=== PATIENT | male | born 1935 | race Caucasian/White ===

== ENCOUNTER 2018-08-20 10:43 | Inpatient (IN) ==
[2018-08-20] MEDS ORDERED: SODIUM CHLORIDE 0.9% 500 ML IV STA (11:11)
[2018-08-20 11:32] LABS: Basophils % 0.1 % (0.0-0.8); Eosinophils % 0.1 % (0.00-10.9); Hemoglobin 9.6 GM/DL (14.0-18.0); Immature Granulocytes % 0.5 %; Immature Granulocytes Absolute 0.09 #; Lymphocytes # 1.7 10*3/uL (1.4-4.0); Lymphocytes % 9.7 % (21.2-54.2); Mean Corpuscular Hemoglobin 29 PG (27-34); Mean Corpuscular Volume 97.9 FL (87-102); Mean Platelet Volume 10.8 FL (9.6-12.0); Monocytes # 0.6 10*3/uL (0.11-0.8); Monocytes % 3.5 % (1.7-12.7); Neutrophils # 15.1 10*3/uL (1.4-7.4); Neutrophils % 86.1 % (38.7-73.9); Platelet Count 268 T/CUMM (130-400); Red Blood Count 3.27 MC/CUMM (3.8-5.5); Red Cell Distribution Width 15.2 % (9.3-17.3); White Blood Count 17.6 T/CUMM (4-12)
[2018-08-20 11:40] LABS: INR 1.1; PT Patient Result 11.4 SECS; Partial Thromboplastin Time 27.9 SECS (0-40)
[2018-08-20 12:02] LABS: Alanine Aminotransferase 26 U/L (16-61); Albumin 2.6 G/DL (3.4-5.0); Alkaline Phosphatase 89 U/L (45-117); Aspartate Amino Transferase 16 U/L (0-37); Blood Urea Nitrogen 83 MG/DL (7-18); Calcium 9.8 MG/DL (8.5-10.1); Glucose 125 MG/DL (74-106); Osmolality,Calculated 345.3 MOS/KG (273-304); Potassium 4.3 MMOL/L (3.5-5.1); Thyroid Stimulating Hormone 0.269 uIU/ml (0.358-3.74); Total Protein 7.8 G/DL (6.4-8.3); Troponin I < 0.015 NG/ML (0.00-0.045)
[2018-08-20 12:03] LABS: Sodium 162 MMOL/L (136-145)
[2018-08-20 12:18] LABS: Amorphous Crystals,Urine Occasional /HPF (Few); Apearance,Urine CLOUDY (Clear); Bilirubin,Urine Negative (Negative); Blood, Urine Large mg/dL (Negative); Glucose,Urine (UA) Negative (Negative); Ketones,Urine Negative (Negative); Mucus,Urine Occasional /LPF (Occasional); Nitrite,Urine Negative (Negative); Protein,Urine 30 MG/DL; RBC,Urine 245 /HPF (0-4); Urine Color Amber (Yellow); Urine Specific Gravity 1.017 (1.001-1.035); Urine Urobilinogen < 2.0 EU/DL (0.2-1.0); WBC,Urine <1 /HPF (0-6)
[2018-08-20 12:20] LABS: Barbiturates Screen,Urine Negative (Negative); Benzodiazepines Screen,Urine Negative (Negative); Cannabinoid Screen,Urine Negative (Negative); Opiate Screen,Urine Negative (Negative); Phencyclidine Screen,Urine Negative (Negative)
[2018-08-20] MEDS ORDERED: DEXTROSE 5% 1,000 ML IV STA (12:27)
[2018-08-20] MEDS ORDERED: DEXTROSE 5% 1,000 ML IV SCH (12:30)
[2018-08-20] MEDS ORDERED: PROMETHAZINE 25 MG/1 ML VIAL IM PRN (12:44)
[2018-08-20] MEDS ORDERED: ONDANSETRON 4 MG/2 ML VIAL IV PRN (12:44)
[2018-08-20] MEDS ORDERED: ACETAMINOPHEN 325 MG SUPP RECTAL PRN (12:45)
[2018-08-20] MEDS ORDERED: GLUCAGON 1 MG VIAL IM PRN (12:54)
[2018-08-20] MEDS ORDERED: POTASSIUM CHLORIDE RIDER 10 MEQ in PREMIX 1 EACH IV PRN (12:54)
[2018-08-20] MEDS ORDERED: MAGNESIUM SULF RIDER 4 GM in PREMIX 1 EACH IV PRN (12:54)
[2018-08-20] MEDS ORDERED: MAGNESIUM SULF RIDER 2 GM in PREMIX 1 EACH IV PRN (12:54)
[2018-08-20] MEDS ORDERED: DEXTROSE 50% 25 GM/50 ML VIAL IV PRN (12:54)
[2018-08-20 15:51] LABS: Calcium 9.4 MG/DL (8.5-10.1); Osmolality,Calculated 347.3 MOS/KG (273-304); Potassium 4.3 MMOL/L (3.5-5.1)
[2018-08-20] MEDS: cefTRIAXone 1,000 MG in SYRINGE 1 EACH IV SCH (16:16)
[2018-08-20] MEDS: DEXTROSE 5% 1,000 ML IV SCH (16:16)
[2018-08-20] MEDS: HEPARIN 5,000 UNIT/1 ML VIAL SUBCUT SCH ×2 (16:16→22:05)
[2018-08-20 19:57] LABS: Calcium 9.3 MG/DL (8.5-10.1); Osmolality,Calculated 332.3 MOS/KG (273-304); Potassium 3.9 MMOL/L (3.5-5.1)
[2018-08-21 02:39] LABS: Basophils % 0.1 % (0.0-0.8); Eosinophils # 0.2 10*3/uL (0.0-0.87); Eosinophils % 1.1 % (0.00-10.9); Hematocrit 28.3 VOL% (42.0-52.0); Hemoglobin 8.5 GM/DL (14.0-18.0); Immature Granulocytes % 0.8 %; Immature Granulocytes Absolute 0.11 #; Lymphocytes # 1.6 10*3/uL (1.4-4.0); Lymphocytes % 11.5 % (21.2-54.2); Mean Corpuscular Hemoglobin 29 PG (27-34); Mean Corpuscular Volume 95.6 FL (87-102); Mean Platelet Volume 10.7 FL (9.6-12.0); Monocytes # 0.6 10*3/uL (0.11-0.8); Monocytes % 4.2 % (1.7-12.7); Neutrophils # 11.5 10*3/uL (1.4-7.4); Neutrophils % 82.3 % (38.7-73.9); Platelet Count 250 T/CUMM (130-400); Red Blood Count 2.96 MC/CUMM (3.8-5.5)
[2018-08-21 03:01] LABS: Calcium 9.2 MG/DL (8.5-10.1); Osmolality,Calculated 327.6 MOS/KG (273-304); Potassium 3.5 MMOL/L (3.5-5.1)
[2018-08-21 03:04] LABS: Albumin 2.3 G/DL (3.4-5.0); Bilirubin,Total 1.4 MG/DL (0.2-1.0); Calcium 9.3 MG/DL (8.5-10.1); Osmolality,Calculated 330.4 MOS/KG (273-304); Potassium 3.5 MMOL/L (3.5-5.1); Risk Ratio 3.91; Total Protein 7.3 G/DL (6.4-8.3); VLDL CHOLESTEROL 21.4 MG/DL
[2018-08-21] MEDS: DEXTROSE 5% 1,000 ML IV SCH ×2 (04:00→16:59)
[2018-08-21] MEDS: HEPARIN 5,000 UNIT/1 ML VIAL SUBCUT SCH ×3 (04:56→20:33)
[2018-08-21 08:06] LABS: Calcium 9.3 MG/DL (8.5-10.1); Osmolality,Calculated 326.7 MOS/KG (273-304); Potassium 3.5 MMOL/L (3.5-5.1)
[2018-08-21] MEDS: cefTRIAXone 1,000 MG in SYRINGE 1 EACH IV SCH (08:58)
[2018-08-21] MEDS: INSULIN LISPRO 100 UNIT/ML SUBCUT SCH ×3 (11:31→20:33)
[2018-08-22 05:07] LABS: Basophils % 0.2 % (0.0-0.8); Eosinophils # 0.3 10*3/uL (0.0-0.87); Eosinophils % 2.7 % (0.00-10.9); Hematocrit 27.2 VOL% (42.0-52.0); Hemoglobin 8.4 GM/DL (14.0-18.0); Immature Granulocytes % 0.4 %; Immature Granulocytes Absolute 0.04 #; Lymphocytes # 1.9 10*3/uL (1.4-4.0); Lymphocytes % 18.6 % (21.2-54.2); Mean Corpuscular HGB Conc 30.9 GM/DL (32-36); Mean Corpuscular Hemoglobin 29 PG (27-34); Mean Corpuscular Volume 94.1 FL (87-102); Mean Platelet Volume 11.3 FL (9.6-12.0); Monocytes # 0.6 10*3/uL (0.11-0.8); Monocytes % 5.8 % (1.7-12.7); Neutrophils # 7.3 10*3/uL (1.4-7.4); Neutrophils % 72.3 % (38.7-73.9); Platelet Count 238 T/CUMM (130-400); Red Blood Count 2.89 MC/CUMM (3.8-5.5); Red Cell Distribution Width 14.7 % (9.3-17.3)
[2018-08-22] MEDS: HEPARIN 5,000 UNIT/1 ML VIAL SUBCUT SCH ×3 (05:16→21:20)
[2018-08-22] MEDS: DEXTROSE 5% 1,000 ML IV SCH ×4 (05:17→17:50)
[2018-08-22 05:18] LABS: Calcium 9.4 MG/DL (8.5-10.1); Osmolality,Calculated 311.4 MOS/KG (273-304); Potassium 3.5 MMOL/L (3.5-5.1)
[2018-08-22] MEDS: INSULIN LISPRO 100 UNIT/ML SUBCUT SCH ×4 (07:13→21:20)
[2018-08-22] MEDS: cefTRIAXone 1,000 MG in SYRINGE 1 EACH IV SCH (09:27)
[2018-08-22] MEDS ORDERED: FUROSEMIDE 20 MG/2 ML VIAL IV ONE (18:53)
[2018-08-22] MEDS: ALBUTEROL/IPRATROPIUM 3 ML NEB RESP TX SCH (19:53)
[2018-08-22] MEDS: methylPREDNISolone SOD SUC 40 MG/1 ML VIAL IV SCH (21:51)
[2018-08-23] MEDS: ALBUTEROL/IPRATROPIUM 3 ML NEB RESP TX SCH ×4 (01:02→19:33)
[2018-08-23 05:18] LABS: Hematocrit 27.3 VOL% (42.0-52.0); Hemoglobin 8.4 GM/DL (14.0-18.0); Immature Granulocytes % 0.5 %; Immature Granulocytes Absolute 0.04 #; Lymphocytes # 0.3 10*3/uL (1.4-4.0); Lymphocytes % 3.9 % (21.2-54.2); Mean Corpuscular HGB Conc 30.8 GM/DL (32-36); Mean Corpuscular Hemoglobin 28 PG (27-34); Mean Corpuscular Volume 92.2 FL (87-102); Mean Platelet Volume 10.9 FL (9.6-12.0); Monocytes # 0.1 10*3/uL (0.11-0.8); Monocytes % 0.6 % (1.7-12.7); Neutrophils # 7.8 10*3/uL (1.4-7.4); Platelet Count 275 T/CUMM (130-400); Red Blood Count 2.96 MC/CUMM (3.8-5.5); Red Cell Distribution Width 14.3 % (9.3-17.3); White Blood Count 8.2 T/CUMM (4-12)
[2018-08-23 05:42] LABS: Band Neutrophils 1 % (0-10); Hypochromasia 1+; Lymphocytes 3 % (20-55); Ovalocytes Slight; Platelet Estimate Adequate; Segmented Neutrophils 96 % (50-85); Total Cells Counted 100
[2018-08-23] MEDS: HEPARIN 5,000 UNIT/1 ML VIAL SUBCUT SCH ×2 (05:45→12:12)
[2018-08-23] MEDS: methylPREDNISolone SOD SUC 40 MG/1 ML VIAL IV SCH (05:46)
[2018-08-23 09:05] LABS: Calcium 9.4 MG/DL (8.5-10.1); Osmolality,Calculated 308.1 MOS/KG (273-304); Potassium 3.6 MMOL/L (3.5-5.1)
[2018-08-23] MEDS: cefTRIAXone 1,000 MG in SYRINGE 1 EACH IV SCH (09:16)
[2018-08-23] MEDS: INSULIN LISPRO 100 UNIT/ML SUBCUT SCH ×4 (09:16→21:01)
[2018-08-23] MEDS: DEXTROSE 5% 1,000 ML IV SCH ×3 (12:14→20:30)
[2018-08-24] MEDS: ALBUTEROL/IPRATROPIUM 3 ML NEB RESP TX SCH ×4 (00:39→19:55)
[2018-08-24] MEDS: DEXTROSE 5% 1,000 ML IV SCH (05:25)
[2018-08-24] MEDS: INSULIN LISPRO 100 UNIT/ML SUBCUT SCH ×4 (06:54→22:19)
[2018-08-24 08:15] LABS: Calcium 8.9 MG/DL (8.5-10.1); Potassium 3.1 MMOL/L (3.5-5.1)
[2018-08-24] MEDS ORDERED: ceFAZolin 1,000 MG in SYRINGE 1 EACH IV STA (08:43)
[2018-08-24] MEDS ORDERED: ceFAZolin 1,000 MG VIAL ONE (08:51)
[2018-08-24] MEDS ORDERED: PROPOFOL 200 MG/20 ML VIAL IV ONE (09:00)
[2018-08-24] MEDS ORDERED: LIDOCAINE 2% 5 ML VIAL ONE (09:00)
[2018-08-24] MEDS: SODIUM CHLOR 0.9% KCL 40 MEQ 40 MEQ/1,000 ML BAG IV SCH ×2 (10:31→23:39)
[2018-08-25] MEDS: ALBUTEROL/IPRATROPIUM 3 ML NEB RESP TX SCH ×2 (00:34→07:25)
[2018-08-25 05:50] LABS: Basophils % 0.1 % (0.0-0.8); Eosinophils % 0.1 % (0.00-10.9); Hematocrit 24.3 VOL% (42.0-52.0); Hemoglobin 7.7 GM/DL (14.0-18.0); Lymphocytes # 0.9 10*3/uL (1.4-4.0); Lymphocytes % 8.8 % (21.2-54.2); Mean Corpuscular HGB Conc 31.7 GM/DL (32-36); Mean Corpuscular Hemoglobin 29 PG (27-34); Mean Corpuscular Volume 91.4 FL (87-102); Mean Platelet Volume 11.3 FL (9.6-12.0); Monocytes # 0.5 10*3/uL (0.11-0.8); Neutrophils # 8.9 10*3/uL (1.4-7.4); Platelet Count 291 T/CUMM (130-400); Red Blood Count 2.66 MC/CUMM (3.8-5.5); Red Cell Distribution Width 14.1 % (9.3-17.3); White Blood Count 10.5 T/CUMM (4-12)
[2018-08-25 06:01] LABS: Calcium 8.8 MG/DL (8.5-10.1); Osmolality,Calculated 311.4 MOS/KG (273-304); Potassium 4.2 MMOL/L (3.5-5.1)
[2018-08-25 06:05] LABS: Prealbumin 11.5 MG/DL (20-40)
[2018-08-25 07:29] LABS: Hematocrit 26.2 VOL% (42.0-52.0); Hemoglobin 8.1 GM/DL (14.0-18.0)
[2018-08-25] MEDS: INSULIN LISPRO 100 UNIT/ML SUBCUT SCH ×2 (09:27→12:02)
[2018-08-25] MEDS ORDERED: METOCLOPRAMIDE 10 MG/10 ML UDCUP PO SCH (10:00)
[2018-08-25 10:46] VITALS: BP 126/61
== END 2018-08-25 12:01 | DRG 682 ==
LOC: N.EDINP 10:43 → N.ED 10:43 → N.2E 15:39 → SUATTDRO 08-21 12:47
PROVIDERS: ADMIT Internal Medicine; ATTEND Hospitalist
PROC: EGDWPEG (ICD-10-PCS; 2018-08-24 08:35)